=== PATIENT | female | born 1950 | race Caucasian/White ===

== ENCOUNTER → 2023-07-05 13:22 | Outpatient (REF) | payer MEDICARE, SELFPAY | LOC: WDC 13:22 | PROVIDERS: ATTENDING PHYSICIAN Nurse Practitioner Primary Care | DX: Z12.31 Encounter for screening mammogram for malignant neoplasm of breast (principal) | CPT/HCPCS: 77063; 77067 ==

== ENCOUNTER → 2023-08-13 11:41 | Outpatient (REF) | payer MEDICARE, SELFPAY | LOC: RAD 11:41 | PROVIDERS: ATTENDING PHYSICIAN Nurse Practitioner Family | DX: M54.2 Cervicalgia (principal) | CPT/HCPCS: 72052 ==

== ENCOUNTER → 2023-10-29 07:38 | Outpatient (REF) | payer MEDICARE, SELFPAY | LOC: RAD 07:38 | PROVIDERS: ATTENDING PHYSICIAN Nurse Practitioner Family | DX: G44.52 New daily persistent headache (NDPH) (principal) | CPT/HCPCS: 70450 ==

== ENCOUNTER 2023-12-03 14:46 | Emergency (ER) | payer MEDICARE, SELFPAY ==
[2023-12-03 14:48] VITALS: BP 168/95
--- NOTE | 2023-12-03 16:03 | ED.GENMED ---
History of Present Illness
General
Chief Complaint: Headache
Time Seen by Provider: 12/03/23 15:45
History of Present Illness
History of Present Illness:
Patient is a 73-year-old female with a history of calcified meningioma, transverse myelitis, GBS, who presents to the emergency department with months of a headache. She has been seeing her primary doctor for this. She has been prescribed Medrol
Dosepaks as well as increases to her pregabalin and venlafaxine. She has had some success with this however over the past few weeks she has been having continued headaches. Denies any neurologic symptoms such as numbness weakness or tingling.
Past History
Past History
ED Past Medical History: Asthma, HTN, Hypercholesterolemia and Other (Guillian [place], Questionable transverse Mylitis, Pyelonephritis)
ED Past Surgical History: Cholecystectomy
Social History
Tobacco: Non-smoker
Alcohol: Occasional
Drug: None
Personal:
Living: with family
Employment: Employed
Family History
Family History: CAD
Phy Exam
Physical Exam
Physical Exam:
GENERAL APPEARANCE: NAD, well developed/ well nourished
EYES lids/conjunctiva normal
EARS/NOSE/THROAT Mucous membranes moist, uvula midline without oral pharyngeal erythema, exudate or swelling
HEAD/NECK normocephalic atraumatic, neck is supple, tenderness to R occiput focally, no skin changes or palpable abnormalities. palpation of this area reproduces headache
RESPIRATORY respiratory effort normal, speaks in full sentences, no accessory muscle use. Lungs clear to auscultation without rhonchi, wheezes, rales
CARDIAC Regular rate and rhythm, no edema.
ABDOMINAL Soft, ND/NT. No pulsatile masses on exam, rebound tenderness, Cedillo sign or pain over Mcburney's point.
MUSCLES/EXTREMITIES No abnormal range of motion, no swelling.
SKIN Warm, pink and dry. No rashes
NEUROLOGICAL Speech is clear and appropriate. Normal level of consciousness. 5/5 strength in all extremities, diminished sensation from knees down bilatereally at baseline. CN2-12 intact, no dysmetria or ataxia
PSYCH Normal mood and affect. Judgement/competence is appropriate
Course
Orders/Labs/Results
Orders:
Orders
12/03/23 16:01
Bupivacaine Pf 0.5% [Sensorcaine 0.5% Single Dose] 30 ml INJ OR ONE
Vital Signs
Initial and Last Documented VS:
Initial Vital Signs
Temp Pulse Resp BP Pulse Ox
98.7 F 100 14 168/95 98
12/03/23 14:48 12/03/23 14:48 12/03/23 14:48 12/03/23 14:48 12/03/23 14:48
Last Documented Vital Signs
Temp Pulse Resp BP Pulse Ox
98.7 F 96 18 143/73 97
12/03/23 14:48 12/03/23 17:50 12/03/23 17:50 12/03/23 17:50 12/03/23 17:50
Procedures
Other
Indication for procedure:: occipital neuralgia
Procedure completed by: Dr. Howell
Additional Procedure:
3cc 0.5% bupivicaine instilled around occipital nerve
maddi back to confirm not in vessel
cleaned with alcohol swap prior
no complications
*Critical Care Note
Total Time (30-74mins, 75-104mins- exclusive of procedures): Not Applicable
Update Note
Update Note:
Reassessed patient. Headache has improved from a 6 out of 10 to a 3 out of 10.
ED Attending Note
ED Attending Note
ED Attending Note:
Suspect occipital neuralgia. No new neurologic deficits. Headache is not thunderclap or worst headache of life. Doubt SAH or intracranial hemorrhage. Treated with occipital nerve block and reassess.
Patients headache resolved
return precautions given.
Instructed to follow up with neurologist as scheduled
-
Portions of this chart may have been created with voice recognition software.� Occasional wrong word or��sound alike� substitutions may have occurred due to the inherent limitations of voice recognition software.
Discharge Plan
Departure
Patient Disposition: Home (Routine Discharge)
Date of Disposition: 12/03/23
Time of Disposition: 17:51
Patient with high blood pressure during this ER visit?: Yes
Discharge Problem:
Cervico-occipital neuralgia
Instructions: Headache, Adult ED
Prescriptions:
No Action
calcium carbonate-vitamin D3 [Oyster Shell Calcium-Vit D3] 500 MG tablet
1 tab PO DAILY@1200
folic acid 1 MG tablet
1 mg PO DAILY 0RF
venlafaxine 75 MG capsule,extended release 24hr
75 mg PO HS
clonazepam 0.5 MG tablet
0.5 mg PO HS
baclofen 10 MG tablet
10 mg PO BID
Patient Comments:
04/24/19 Per pharmacy # [id number] for 30 day supply patient thinks she takes BID
losartan 25 MG tablet
25 mg PO HS
pregabalin 50 MG capsule
50 mg PO BID
lovastatin 20 MG tablet
20 mg PO HS
acetaminophen 325 MG tablet
650 mg PO Q4HPRN PRN (Reason: mild pain/ALMEIDA/temp> 100.4F) 0RF
sodium chloride 0.9 % (flush) [Normal Saline Flush] 1 FLUSH syringe
10 ml feeding tube DAILY Qty: 10 0RF
Rx Instructions:
to ANAHI drain
ibuprofen 200 MG tablet
600 mg PO QIDPRN PRN (Reason: pain) Qty: 1 0RF
acetaminophen-codeine 1 TABLET tablet
0.5 - 2 tab PO Q4HPRN PRN (Reason: pain not relieved by ibuprofen) Qty: 15 0RF
Referrals:
Jelly Shepard CRNP [Family Provider] -
Activity Restrictions/Additional Instructions:
you have OCCIPITAL NEURALGIA
we performed and OCCIPITAL NERVE BLOCK
please follow up with the neurologist for evaluation
return to ER with new or worsening symptoms
Interventions
Interventions:
*Risk Screen - Suicide Last Done: 12/03/23 14:48
*General Assessment Last Done: 12/03/23 14:48
*Neglect/Abuse Screening Last Done: 12/03/23 14:48
ED- Fall Risk Assessment Last Done: 12/03/23 18:04
*ED COVID-19 Vaccine History Last Done: 12/03/23 18:04
*Nursing Disposition Last Done: 12/03/23 18:04
ED- Neurological Assessment Last Done: 12/03/23 15:52
Discharge Date and Time
Discharge Date/Time: 12/03/23 18:04
Print Language: [email or web address]
[2023-12-03] MEDS: SENSORCAINE 0.5% SINGLE DOSE 30 ML INJ (16:48)
[2023-12-03 17:50] VITALS: BP 143/73
== END 2023-12-03 18:04 | disposition home or self-care (01) ==
LOC: EMR 14:46
PROVIDERS: EMERGENCY PHYSICIAN Emergency Medicine; FAMILY PHYSICIAN Nurse Practitioner Primary Care
DX: M54.81 Occipital neuralgia (principal); R51.9 Headache, unspecified; I10 Essential (primary) hypertension; D32.9 Benign neoplasm of meninges, unspecified; G04.89 Other myelitis; E78.00 Pure hypercholesterolemia, unspecified; J45.909 Unspecified asthma, uncomplicated; Z90.49 Acquired absence of other specified parts of digestive tract; Z88.1 Allergy status to other antibiotic agents; Z91.041 Radiographic dye allergy status; Z91.048 Other nonmedicinal substance allergy status
CPT/HCPCS: 64450; 99284

== ENCOUNTER → 2024-05-11 11:58 | Outpatient (REF) | payer MEDICARE, SELFPAY | LOC: MRI 11:58 | PROVIDERS: ATTENDING PHYSICIAN Psychiatry & Neurology Neurology; FAMILY PHYSICIAN Nurse Practitioner Primary Care | DX: M54.12 Radiculopathy, cervical region (principal) | CPT/HCPCS: 70553; 72141; A9575 ==

== ENCOUNTER → 2024-05-28 07:29 | Outpatient (REF) | payer MEDICARE, SELFPAY | LOC: HWRAD 07:29 | PROVIDERS: ATTENDING PHYSICIAN Nurse Practitioner Primary Care | DX: E04.1 Nontoxic single thyroid nodule (principal) | CPT/HCPCS: 76536 ==

== ENCOUNTER → 2024-07-08 13:11 | Outpatient (REF) | payer MEDICARE, SELFPAY | LOC: WDC 13:11 | PROVIDERS: ATTENDING PHYSICIAN Nurse Practitioner Primary Care | DX: Z12.31 Encounter for screening mammogram for malignant neoplasm of breast (principal) | CPT/HCPCS: 77063; 77067 ==

== ENCOUNTER → 2024-07-22 12:22 | Outpatient (REF) | payer MEDICARE, SELFPAY ==
[2024-07-22 12:48] VITALS: BP 124/76; BP_SYST 80
== END ==
LOC: RADI 12:22
PROVIDERS: ATTENDING PHYSICIAN Internal Medicine Endocrinology, Diabetes & Metabolism; FAMILY PHYSICIAN Nurse Practitioner Primary Care
DX: E04.1 Nontoxic single thyroid nodule (principal)
CPT/HCPCS: 88173; 10005

== ENCOUNTER → 2024-07-27 11:37 | Outpatient (REF) | payer MEDICARE, SELFPAY | LOC: RAD 11:37 | PROVIDERS: ATTENDING PHYSICIAN Nurse Practitioner Primary Care | DX: R79.89 Other specified abnormal findings of blood chemistry (principal) | CPT/HCPCS: 74170; Q9967 ==

== ENCOUNTER → 2025-02-15 08:45 | Outpatient (REF) | payer MEDICARE, SELFPAY | LOC: HWRAD 08:45 | PROVIDERS: ATTENDING PHYSICIAN Nurse Practitioner Primary Care | DX: M85.89 Other specified disorders of bone density and structure, multiple sites (principal); R74.8 Abnormal levels of other serum enzymes; M79.89 Other specified soft tissue disorders | CPT/HCPCS: 76700; 77080 ==